=== PATIENT | male | born 1995 | race Caucasian/White ===

== ENCOUNTER 2024-05-08 01:15 | Outpatient (CLI) | payer OTHER, SELFPAY | END 2024-05-08 01:16 | disposition home or self-care (01) | LOC: AMB 05-16 23:22 | PROVIDERS: Visit Provider Family Medicine | DX: R55 Syncope and collapse (principal); R19.7 Diarrhea, unspecified; R41.82 Altered mental status, unspecified | CPT/HCPCS: A0425; A0427 ==